=== PATIENT | male | born 1990 | race Hispanic/Latino ===

== ENCOUNTER 2020-01-23 07:00 | Day surgery (SDC) | payer BC ==
[~2020-01-23] VITALS: Ht 172.7 cm; Wt 176.4 kg
[2020-01-23] VITALS (8 sets, daily range): BP systolic 111–166; BP diastolic 70–105
[~2020-01-23 07:00] MED LIST: SODIUM CHLORIDE 0.9% 1000ML 1,000 ML IV ONE
[2020-01-23] MEDS ORDERED: MIDAZOLAM HCL 1 MG/ML 2ML VIAL ONE (11:25)
[2020-01-23] MEDS ORDERED: PROPOFOL 10 MG/ML 20ML VIAL IV ONE (11:25)
[2020-01-23] MEDS ORDERED: GLYCOPYRROLATE 0.2 MG/ML 5 ML VIAL ONE (11:27)
[2020-01-23] MEDS ORDERED: BENZOCAINE 20% 57 GM SPRAY ONE (11:28)
[2020-01-23] MEDS ORDERED: KETAMINE 50MG/ML SYRINGE 50 MG/ML DISP.SYRIN IV ONE (11:32)
[2020-01-23] MEDS ORDERED: BISA5TAB12 PO (12:20)
[2020-01-23] MEDS ORDERED: OLME20TA10 PO (12:20)
[2020-01-23] MEDS ORDERED: NAPR500T6 PO (12:20)
[2020-01-23] MEDS ORDERED: MAGNESIUM (12:21)
== END 2020-01-23 12:30 | disposition home or self-care (01) ==
LOC: DAH 07:00 → ENDO 07:00
PROVIDERS: ATTEND Internal Medicine Gastroenterology
DX: R10.12 Left upper quadrant pain (principal); K29.70 Gastritis, unspecified, without bleeding
CPT/HCPCS: 36415; 43239; A4215; A4221; A4222; A4223; A4606; A4620; A4657; A4663; J2250; J2704; J3490 ×2; J7030; U0003